=== PATIENT | male | born 1970 | race Caucasian/White ===

== ENCOUNTER 2020-08-07 15:02 | Emergency (ER) | payer OTHER ==
[~2020-08-07] VITALS: Ht 177.8 cm; Wt 74.8 kg
[~2020-08-07 15:02] MED LIST: HYDR1TAB94 PO; LORA.5 PO; OXYC5 PO; PROM25 PO; Percocet 5-3251 EACH PO
[2020-08-07] MEDS ORDERED: AMOCLA875 PO (16:16)
== END 2020-08-07 18:13 | disposition home or self-care (01) ==
LOC: ER 15:02
DX: S61.451A Open bite of right hand, initial encounter (principal); Z79.899 Other long term (current) drug therapy; Z23 Encounter for immunization; F17.220 Nicotine dependence, chewing tobacco, uncomplicated; W55.01XA Bitten by cat, initial encounter
CPT/HCPCS: 90375; 90376; 90471; 96372; 99283-25

== ENCOUNTER 2021-02-22 11:35 | Day surgery (SDC) | payer OTHER ==
[~2021-02-22] VITALS: Ht 177.8 cm; Wt 72.3 kg
[~2021-02-22 11:35] MED LIST changes: +AMOCLA875 PO; +ATOM18 PO; +HARVONI 90-4001 EAC1 PO; +NADO20 PO; +ZYRTEC10 M4
--- NOTE | 2021-02-22 13:57 | NUR ---
02/22/21 1357 Cris Luong [id number]: LATE ENTRY: PT VERY GROGGY UPON ENTERING SDU. PT WAS ASSESED FOR PAIN AND NAUSEA. SAID HE HAD SLIGHT PAIN IN HIS STOMACH. REQUESTED SODA TO DRINK. PT SAT UP IN BED VSS. SODA PROVIDED.PT TOLERATING PO, PTS RIDE CALLED A FEW MINUTES LATER,PREPARING PT FOR DISCHARGE ONCE HE HAD BECOME MORE AWAKE. AFTER DRINKING ABOUT A HALF OF THE SODA, PT STARTED COMPLAINING MORE OF PAIN AND HEARTBURN IN HIS UPPER ABDOMEN. DR SEALS HAD MENTIONED IN PROCEDURE THAT HE WOULD BE PAINFUL, I CONSULTED WITH , FENTANYL 25MCG IV ORDERED. IV RESTARTED AND PT WAS MEDICATED. 1350 DR SEALS IN ROOM SPEAKING TO PT. ORDERED ANOTHER 25MCG OF IV FENTAYL. PT STATES PAIN IS GETTING BETTER. WILL CONTINUE TO MONITOR AND D/C WHEN APPROPRIATE FOR PT. THEN AFTER A FEW SIPS, SAID
== END 2021-02-22 14:13 | disposition home or self-care (01) ==
LOC: ORSCSDS 11:35
PROVIDERS: Internal Medicine Gastroenterology
PROC: 06L38CZ Occlusion of Esophageal Vein with Extraluminal Device, Via Natural or Artificial Opening Endoscopic (ICD-10-PCS; principal; 2021-02-22 12:45)
PROC: 0DBM8ZX Excision of Descending Colon, Via Natural or Artificial Opening Endoscopic, Diagnostic (ICD-10-PCS; principal; 2021-02-22 12:45)
DX: Z12.11 Encounter for screening for malignant neoplasm of colon (principal); K63.5 Polyp of colon; K57.30 Diverticulosis of large intestine without perforation or abscess without bleeding; K64.8 Other hemorrhoids; K70.30 Alcoholic cirrhosis of liver without ascites; I85.10 Secondary esophageal varices without bleeding; K44.9 Diaphragmatic hernia without obstruction or gangrene; B18.2 Chronic viral hepatitis C; R10.13 Epigastric pain; Z88.8 Allergy status to other drugs, medicaments and biological substances; Z87.891 Personal history of nicotine dependence
CPT/HCPCS: 36415; 74176; 80053; 81001; 83690; 85025; 86900; 86901; 88305; 93005; 93010; 96374; 99284-25; A9270; J2405; J2704; J3010; J7030; J7120

== ENCOUNTER 2022-11-05 08:50 | Day surgery (SDC) | payer OTHER ==
[~2022-11-05] VITALS: Ht 177.8 cm; Wt 76.5 kg
--- NOTE | 2022-11-05 11:20 | NUR ---
11/05/22 1120 Yvette Gomez PILLOW UNDER HEAD AND KNEES. RIGHT ARM TUCKED. LEFT ARM SECURED ON PADDED ARM BOARD.
== END 2022-11-05 12:45 | disposition home or self-care (01) ==
LOC: ORSCSDS 08:50
PROVIDERS: Otolaryngology
PROC: 09CM8ZZ Extirpation of Matter from Nasal Septum, Via Natural or Artificial Opening Endoscopic (ICD-10-PCS; principal; 2022-11-05 10:00)
DX: T17.1XXA Foreign body in nostril, initial encounter (principal); Z87.891 Personal history of nicotine dependence; K74.60 Unspecified cirrhosis of liver; B19.20 Unspecified viral hepatitis C without hepatic coma; Z79.899 Other long term (current) drug therapy
CPT/HCPCS: J0171; J2250; J2370; J2704; J3010; J7120

== ENCOUNTER → 2023-06-25 | Outpatient (CLI) | payer OTHER ==
[2023-06-25 10:13] LABS: BASOPHILS ABSOLUTE AUTO 0.02 K/mm3 (0.00-0.23); BASOPHILS PERCENT AUTO 0 % (0-2); EOSINOPHILS PERCENT AUTO 0 % (0-6); Hematocrit 42.2 % (37.0-53.0); Hemoglobin 14.8 g/dL (13.5-17.5); IMMATURE GRAN ABSOLUTE AUTO 0.02 K/mm3 (0.00-0.10); IMMATURE GRAN PERCENT AUTO 0 % (0-1); LYMPHOCYTES ABSOLUTE AUTO 1.06 K/mm3 (0.84-5.20); LYMPHOCYTES PERCENT AUTO 12 % (21-46); MONOCYTES ABSOLUTE AUTO 0.72 K/mm3 (0.16-1.47); MONOCYTES PERCENT AUTO 8 % (4-13); Mean Corpuscular HGB 30.1 pg (26.0-34.0); Mean Corpuscular HGB Conc 35.1 g/dL (31.5-36.5); Mean Corpuscular Volume 86 fL (80-100); Mean Platelet Volume 9.2 fL (9.1-12.4); NEUTROPHILS ABSOLUTE AUTO 7.27 K/mm3 (1.96-9.15); NEUTROPHILS PERCENT AUTO 80 % (41-73); Platelet Count 158 K/mm3 (150-400); RDW Coefficient Variation 13.3 % (11.7-14.2); RDW Standard Deviation 41.5 fL (35.1-46.3); Red Blood Cell Count 4.91 M/mm3 (4.30-5.90); White Blood Cell Count 9.09 K/mm3 (4.00-11.30)
== END | disposition home or self-care (01) ==
LOC: LAB 10:09 → LAB SHORT 10:09
PROVIDERS: Physician Assistant
DX: R10.2 Pelvic and perineal pain (principal); R19.09 Other intra-abdominal and pelvic swelling, mass and lump
CPT/HCPCS: 85025